=== PATIENT | female | born 1935 | race Caucasian/White ===

== ENCOUNTER → 2016-10-31 | Outpatient (CLI) | payer MEDICARE, OTHER ==
[2016-10-31 10:19] LABS: Blood Urea Nitrogen 10 mg/dL (7-17); Non-African American GFR(MDRD) 53 (>60 ml/min/1.73 sqM)
--- NOTE | 2016-10-31 11:52 | CT ---
EXAMINATION TYPE: CT chest wo/w con DATE OF EXAM: 10/31/2016 COMPARISON: 08/01/2015 and 09/11/2013 HISTORY: 80-year-old female Patient has no complaints at time of study. Follow up study for known keshia ng nodule. History of breast cancer and radiation treatment. TECHNIQUE: Contiguous axial scanning of the chest after the administration of 80 mL of Visipaque 320. Coronal/sagittal reconstructions performed. CT DLP: 1114mGycm. Automatic exposure control utilized for a dose reduction. FINDINGS: Heart is upper limits of normal in size without pericardial effusion. Coronary vessel calcifications are present in the remarkable for coronary artery disease. Aorta is normal caliber with bovine configuration to the aortic arch and mild atherosclerotic calcifi cations. Patient is status post right mastectomy. Similar scarring within the right axilla. No thoracic lympha denopathy by CT size criteria. Evaluation of the lungs shows mild to moderate emphysema and stable band of scarring with a minimal a djacent groundglass extending along the anterior aspect of the right lung 9 mm groundglass nodule posterior right base axial image 40 is new. Some reticulations could represen t atelectasis or interstitial scarring at the posterior lung bases. No consolidation or pleural effus ion. Tiny hiatal hernia. There are 5 new hypovascular liver lesions measuring up to 2.2 cm. Tiny subcentimeter cortical cyst p osterior left kidney is unchanged. Moderate stool burden. Bones: Endplate spondylosis mid to lower thoracic spine there is a new inferior endplate compression fracture of T5 possibly subacute injury given mild paravertebral soft tissue thickening. There is ove rall 40-50% anterior height loss. No retropulsion into the spinal canal. New heterogeneity of the T1 vertebral body, referred to sagittal image 52. IMPRESSION: 1. 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 2. A 9 mm groundglass nodule at the posterior right base is new. This could represent a small infecti ous/inflammatory focus. Early metastatic disease not excluded. 3. However, other findings are concerning for metastatic disease with 5 new hypovascular liver lesion s measuring up to 2.2 cm 4. New heterogeneity of the T1 vertebral body. Early osseous metastatic disease not excluded. 5. T5 vertebral compression collapse is new from 08/01/2015 and is suspected to represent a subacute in jury.
== END | disposition home or self-care (01) ==
LOC: RADCTMAIN 09:40
PROVIDERS: ATTEND Family Medicine
DX: R91.1 Solitary pulmonary nodule (principal); J43.9 Emphysema, unspecified
CPT/HCPCS: 82565; 84520; 71270; 36415; Q9967

== ENCOUNTER → 2016-12-06 | Outpatient (CLI) | payer MEDICARE, OTHER ==
--- NOTE | 2016-12-06 10:26 | US ---
EXAMINATION TYPE: US liver DATE OF EXAM: 12/06/2016 COMPARISON: CT October 31, 2016 and ultrasound 02/13/2013 CLINICAL HISTORY: C22.9 Neoplasm of liver. Liver lesions seen on recent CT, cholecystectomy, constipa tion EXAM MEASUREMENTS: Liver Length: 13.1 cm Gallbladder Wall: Surgically absent CBD: 0.7 cm Right Kidney: 10.3 x 4.1 x 3.9cm Pancreas: Obscured by bowel gas Liver: multiple complex lesions noted, largest = 2.6 x 2.2 x 2.7cm Gallbladder: Surgically absent Evidence for sonographic Costello's sign: no CBD: wnl Right Kidney: no evidence of hydronephrosis or mass IMPRESSION: 1. Multiple hepatic lesions are concerning for metastatic disease.
== END ==
LOC: RADUSWWP 09:33
PROVIDERS: ATTEND Internal Medicine Sleep Medicine
DX: C22.9 Malignant neoplasm of liver, not specified as primary or secondary (principal)
CPT/HCPCS: 76705

== ENCOUNTER 2016-12-21 08:40 | Day surgery (SDC) | payer MEDICARE, OTHER ==
[2016-12-21] MEDS ORDERED: HYDROmorphone 1 MG/ML 1 ML SYRINGE IVP PRN (08:45)
[2016-12-21 09:12] VITALS: BP 152/65; PULSE 68; RESP 20; TEMP 97.8
[2016-12-21 09:16] LABS: Mean Platelet Volume 7.5
[2016-12-21 09:45] LABS: INR 1.1 (<1.2); Prothrombin Time 10.8 sec (9.0-12.0)
--- NOTE | 2016-12-24 12:45 | US ---
Discontinued liver biopsy HISTORY: Liver masses Following discussion with the patient of risks and benefits of procedure, patient has elected to defe r liver biopsy this time.
== END 2016-12-21 10:55 | disposition home or self-care (01) ==
LOC: RADPROMAIN 08:40
PROVIDERS: ATTEND Internal Medicine Sleep Medicine
DX: K76.89 Other specified diseases of liver (principal); Z53.8 Procedure and treatment not carried out for other reasons
CPT/HCPCS: 36415; 76705; 85049; 85610

== ENCOUNTER → 2016-12-22 | Outpatient (CLI) | payer MEDICARE, OTHER ==
--- NOTE | 2016-12-23 21:00 | PE ---
Nuclear medicine PET/CT HISTORY: Solitary pulmonary nodule Patient received 12.8 mCi F-18 FDG intravenously. Delayed whole-body scanning was performed. Correlation to patient's CT 10/31/2016, ultrasound liver 12/06/2016. Neck and chest: There is a right pleural effusion. No evident adenopathy. Coronary artery calcificati ons are present. Hiatal hernia is present. Areas of scarring suspected within the right upper lobe. R etropectoral node is suspected on the right, associated hypermetabolic uptake, SUV is 2.8. Right doyle r nodes thought to be present, hypermetabolic uptake noted, SUV 4.8. Patient is status post right mas tectomy. Abdomen pelvis: Multiple foci of hypermetabolic uptake noted within the liver compatible with patient 's previous exams, SUV 5.8-7.5, lesion is present within the anterior right lobe towards the dome, po sterior right lobe, caudate lobe, left lobe. Osseous structures: Multiple foci are present which are normal. T1 vertebral body shows sclerotic tyrone earance, there is associated hypermetabolic uptake, SUV 5.3. Sclerotic focus at T6 vertebral body courtney ws hypermetabolic uptake, SUV 3.8. Suspect L5 pedicle on the right is abnormal with hypermetabolic up take 3.6. Sacral lesion also present, SUV 3.8. Anterior sixth rib on the left shows hypermetabolic up take, SUV 2.6. IMPRESSION: Metastatic disease as described.
== END | disposition home or self-care (01) ==
LOC: RADPETMAIN 11:29
PROVIDERS: ATTEND Internal Medicine Sleep Medicine
DX: C79.9 Secondary malignant neoplasm of unspecified site (principal); R91.1 Solitary pulmonary nodule
CPT/HCPCS: 78815; A9552

== ENCOUNTER → 2017-01-08 | Day surgery (SDC) | payer MEDICARE, OTHER ==
[2017-01-08 13:24] VITALS: PULSE 71; RESP 16; TEMP 98.6
--- NOTE | 2017-01-08 14:34 | P.PCN ---
Date of Procedure: 01/08/17 Preoperative Diagnosis: malignant right pleural effusion, lung nodule, liver nodule Postoperative Diagnosis: as above Procedure(s) Performed: right thoracentesis Anesthesia: local Surgeon: Bernard Lewis Estimated Blood Loss (ml): 10 Condition: stable Disposition: same day Indications for Procedure: as above Operative Findings: as below Description of Procedure: u/s utilized for max depth, 1 % lidocaine used at 8 th ICS, right catheter in needle placed needle removed catheter left 200 cc of dark orange pleural fluid aspirated, tolerated well
--- NOTE | 2017-01-08 14:41 | XR ---
EXAMINATION TYPE: XR chest 1V portable DATE OF EXAM: 01/08/2017 COMPARISON: Prior chest x-ray 04/06/2015 HISTORY: Status post thoracentesis TECHNIQUE: Single frontal view of the chest is obtained. FINDINGS: There is no evident pneumothorax. Cardiomediastinal silhouette, pulmonary vascularity and doyle not significantly changed. Small residual right pleural effusion suspected with associated atele ctasis. IMPRESSION: No evident complication status post thoracentesis.
[2017-01-08 14:49] VITALS: BP 168/74
[2017-01-08 15:17] LABS: Total Protein 7.5 g/dL (6.3-8.2)
[2017-01-08 15:44] LABS: RBC, Body Fluid 2730 /uL
[2017-01-08 16:01] LABS: Body Fluid Comment Moderate Mesothelial
[2017-01-08 20:25] LABS: Glucose, BF Source Pleural Fluid; LDH, Body Fluid Source Pleural Fluid; T. Protein, Body Fluid Source Pleural Fluid; Total Protein, Body Fluid 3700 mg/dL
== END ==
LOC: PROCWHC3 12:51
PROVIDERS: ATTEND Internal Medicine Sleep Medicine
DX: C50.919 Malignant neoplasm of unspecified site of unspecified female breast (principal); C78.2 Secondary malignant neoplasm of pleura; K76.89 Other specified diseases of liver
CPT/HCPCS: 88108; 88305; 89050; 83615 ×2; 84155; 88342; 88341; 87070; 87205; 87116; 87102; 87206; 82945; 84157; 71010; 36415; 32554; J2001

== ENCOUNTER → 2017-02-04 | Outpatient (CLI) | payer MEDICARE, OTHER ==
--- NOTE | 2017-02-04 14:18 | XR ---
Limited left elbow HISTORY: Pain, breast cancer 2 views of the left elbow No comparisons Small ossific density noted just lateral to the distal humerus. No evident lytic or blastic lesion. N o joint effusion. Alignment and bone mineralization are normal. IMPRESSION: There may be an old avulsion injury, correlate for calcific tendinitis, elbow MRI may be of benefit.
== END | disposition home or self-care (01) ==
LOC: RADXRMAIN 12:04
PROVIDERS: ATTEND Radiology Radiation Oncology
DX: M79.622 Pain in left upper arm (principal); C50.919 Malignant neoplasm of unspecified site of unspecified female breast; C79.51 Secondary malignant neoplasm of bone; Z88.1 Allergy status to other antibiotic agents; Z88.7 Allergy status to serum and vaccine

== ENCOUNTER 2017-03-29 15:44 | Emergency (ER) | payer MEDICARE, OTHER ==
[2017-03-29 16:03] VITALS: RESP 18; TEMP 98.4
[2017-03-29] MEDS ORDERED: RX INFO: IV CONTRAST WAS GIVEN 1 EACH MISC MISCELLANE PRN (16:56)
--- NOTE | 2017-03-29 17:20 | ED ---
General Adult HPI - General Chief complaint: Eye Problems Stated complaint: Double vision Time Seen by Provider: 03/29/17 16:28 Source: patient, RN notes reviewed Mode of arrival: wheelchair Limitations: no limitations - History of Present Illness Initial comments: Patient 81-year-old female who presents emergency room today with chief complaint of diplopia times one month. Patient does admit that it is not all time but seems to come and go. Patient does state that seems to be worse when she looks to the right. States she began to notice when she saw people come to visit her only symptoms are the same spot. She states that she has also had when she is looking straight ahead at times. States currently not having any symptoms at this time. States that she did mention this earlier to a nurse and was advised complete emergency room for further evaluation. Patient does admit that she's currently being treated by Dr Hyatt for breast cancer with metastasis to the liver, back and ribs. Patient denies any other complaints or any new symptoms. Patient denies any recent fever, chills, shortness of breath, chest pain, back pain, abdominal pain, nausea or vomiting, headaches, or any other complaints. - Related Data Home Medications Medication Instructions Recorded Confirmed Atenolol [Tenormin] 25 mg PO DAILY 11/22/14 03/29/17 Levothyroxine Sodium [Synthroid] 50 mcg PO DAILY 11/22/14 03/29/17 PARoxetine HCL [Paxil] 40 mg PO DAILY 11/22/14 03/29/17 amLODIPine BESYLATE [Norvasc] 10 mg PO HS 11/22/14 03/29/17 traZODone HCL [Desyrel] 150 tab PO HS 11/22/14 03/29/17 Aspirin [Adult Low Dose Aspirin EC] 81 mg PO DAILY 12/17/16 03/29/17 Fluticasone/Salmeterol [Advair 1 inhalation PO BID 12/17/16 03/29/17 250-50 Diskus] Folic Acid 1 mg PO DAILY 12/17/16 03/29/17 Gabapentin [Neurontin] 100 mg PO HS 12/17/16 03/29/17 azaTHIOprine [Imuran] 75 mg PO DAILY 12/17/16 03/29/17 HYDROcodone/APAP 5-325MG [[place] 1 tab PO DAILY PRN 03/29/17 03/29/17 5-325] Morphine Sulfate ER [Ms Contin] 15 mg PO HS 03/29/17 03/29/17 Allergies Allergy/AdvReac Type Severity Reaction Status Date / Time bacitracin Allergy BLISTERS, Verified 03/29/17 16:58 [From Neosporin REDNESS ([id number])] bacitracin zinc Allergy BLISTERS, Verified 03/29/17 16:58 [From Neosporin REDNESS ([id number])] neomycin sulfate Allergy BLISTERS, Verified 03/29/17 16:58 [From Neosporin REDNESS ([id number])] pneumococcal vaccine Allergy ARM EDEMA Verified 03/29/17 16:58 AND REDNESS polymyxin B Allergy BLISTERS, Verified 03/29/17 16:58 [From Neosporin REDNESS ([id number])] alprazolam [From Xanax] AdvReac CHOKING Verified 03/29/17 16:58 COUGH Review of Systems ROS Statement: Those systems with pertinent positive or pertinent negative responses have been documented in the HPI. ROS Other: All systems not noted in ROS Statement are negative. Past Medical History Past Medical History: Cancer, COPD, CVA/TIA, Eye Disorder, Fibromyalgia, GERD/ Reflux, Hearing Disorder / Deafness, Hypertension, Liver Disease, Osteoarthritis (OA), Skin Disorder, Thyroid Disorder Additional Past Medical History / Comment(s): MACULAR DEG. HX MULT TIA'S. HX RT BREAST CA 03/2011, AUTO-IMMUNE HEPATITIS. MULT GROWTHS ON SKIN D/T IMURAN. GOUT. OSTEOPOROSIS. HAS PARTIAL TEAR IN RT ROTATOR CUFF. C/O NAUSEA, HEARTBURN, BLOATING FOR SEV YEARS. History of Any Multi-Drug Resistant Organisms: None Reported Past Surgical History: Bowel Resection, Breast Surgery, Cholecystectomy, Hernia Repair Additional Past Surgical History / Comment(s): RT MASTECTOMY. HIATAL HERNIA REPAIR. R side thoracentesis on 01-08-17 for pleural effusion Past Anesthesia/Blood Transfusion Reactions: Previous Problems w/ Anesthesia Additional Past Anesthesia/Blood Transfusion Reaction / Comment(s): reacts Heavy to it - pt's daughter Past Psychological History: Anxiety Smoking Status: Former smoker Past Alcohol Use History: None Reported Past Drug Use History: None Reported - Past Family History Mother Family Medical History: Cancer General Exam - General Exam Comments Initial Comments: General: The patient is awake and alert, in no distress, and does not appear acutely ill. Eye: Pupils are equal, round and reactive to light, extra-ocular movements are intact. No nystagmus. There is normal conjunctiva bilaterally. No signs of icterus. Ears, nose, mouth and throat: There are moist mucous membranes and no oral lesions. Neck: The neck is supple, there is no tenderness or JVD. Cardiovascular: There is a regular rate and rhythm. No murmur, rub or gallop is appreciated. Respiratory: Lungs are clear to auscultation, respirations are non-labored, breath sounds are equal. No wheezes, stridor, rales, or rhonchi. Musculoskeletal: Normal ROM, no tenderness. Strength 5/5. Sensation intact. Pulses equal bilaterally 2+. Neurological: A&O x 3. CN II-XII intact, There are no obvious motor or sensory deficits. Coordination appears grossly intact. Speech is normal. Normal finger to nose testing. Normal rapid alternating movements. Strength 5/5 bilaterally both upper and lower extremities. Skin: Skin is warm and dry and no rashes or lesions are noted. Psychiatric: Cooperative, appropriate mood & affect, normal judgment. Limitations: no limitations Course Vital Signs 03/29/17 16:01 Temperature 98.4 F Pulse Rate 86 Respiratory 18 Rate Blood Pressure 147/68 O2 Sat by Pulse 98 Oximetry Medical Decision Making - Medical Decision Making CT of the head without contrast was performed as IV was unable to be obtained. Patient did have 2 attempts by nursing staff and has refused any further attempts for IV. Was discussed that this would not be as sensitive of a scan without contrast. CT without shows no acute abnormalities. Does admit to symptoms of diplopia off-and-on over the last month. States all other new changes. Were advised to discuss options of possible MRI. Results were discussed with attending physician Dr. Nj. She'll be discharged home advised follow-up oncologist family doctor next 2 days. Disposition Clinical Impression: Diplopia Disposition: HOME SELF-CARE Condition: Stable Instructions: Diplopia (ED) Additional Instructions: Please follow-up with oncologist/family doctor in the next 2 days. Please return to emergency room if the symptoms increase or worsen or for any other concerns. Referrals: Zackary Guzman MD [Primary Care Provider] - 1-2 days Time of Disposition: 18:46
--- NOTE | 2017-03-29 18:23 | CT ---
EXAMINATION TYPE: CT brain wo con DATE OF EXAM: 03/29/2017 COMPARISON: 04/06/2015 HISTORY: Patient complains of double vision. CT DLP: 798 mGycm Automated exposure control for dose reduction was used. FINDINGS: There is no acute intracranial hemorrhage or midline shift identified. There is diffuse v entricular and sulcal prominence consistent with diffuse age-related cerebral atrophy. There conflue nt areas of low-attenuation in the periventricular white matter consistent with chronic small vessel ischemic change. The globes are intact and the visualized sinuses are clear. 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 Atherosclerosis is seen of the intracranial vasculature. IMPRESSION: No acute intracranial hemorrhage or midline shift. There is diffuse age-related cerebra l atrophy and chronic small vessel ischemic change noted. Findings are similar to the prior of 2015.
[2017-03-29 19:00] VITALS: BP 128/74; PULSE 80
== END 2017-03-29 18:59 | disposition home or self-care (01) ==
LOC: EC 15:44
DX: H53.2 Diplopia (principal); C50.919 Malignant neoplasm of unspecified site of unspecified female breast; C78.7 Secondary malignant neoplasm of liver and intrahepatic bile duct; C79.51 Secondary malignant neoplasm of bone; C79.89 Secondary malignant neoplasm of other specified sites; I10 Essential (primary) hypertension; J44.9 Chronic obstructive pulmonary disease, unspecified; M19.90 Unspecified osteoarthritis, unspecified site; M79.7 Fibromyalgia; E07.9 Disorder of thyroid, unspecified; F41.9 Anxiety disorder, unspecified; Z87.891 Personal history of nicotine dependence; Z79.51 Long term (current) use of inhaled steroids; Z79.82 Long term (current) use of aspirin; Z79.899 Other long term (current) drug therapy; Z88.1 Allergy status to other antibiotic agents; Z88.7 Allergy status to serum and vaccine; Z88.8 Allergy status to other drugs, medicaments and biological substances; Z85.3 Personal history of malignant neoplasm of breast; Z90.11 Acquired absence of right breast and nipple
CPT/HCPCS: 70450; 80053; 99283

== ENCOUNTER → 2017-04-22 | Outpatient (CLI) | payer MEDICARE, OTHER ==
[2017-04-22 15:05] LABS: Blood Urea Nitrogen 9 mg/dL (7-17)
--- NOTE | 2017-04-22 15:49 | CT ---
EXAMINATION TYPE: CT angio chest DATE OF EXAM: 04/22/2017 COMPARISON: Prior CT chest 10/31/2016 HISTORY: SOB x1 month. CT DLP: 257.7 mGycm Automated exposure control for dose reduction was used. CONTRAST: CTA scan of the thorax is performed with IV Contrast, patient injected with 100ml mL of Omnipaque 350 , pulmonary embolism protocol. MIP images are created and reviewed. 3D reconstructed images are cre ated on an independent workstation and reviewed. FINDINGS: LUNGS: The lungs are remarkable for emphysematous changes. There are sizable pleural effusions bilate rally with associated atelectasis. Bandlike area of scarring in the right upper lobe is again seen. N o endobronchial lesion.. AORTA: No additional significant abnormality is seen. MEDIASTINUM: There is satisfactory enhancement of the pulmonary artery and its branches, there is no CT evidence for pulmonary embolism. There are no greater than 1 cm hilar or mediastinal lymph nodes. No pericardial effusion is seen. OTHER: Multiple low attenuation foci are scattered within the liver compatible with metastasis. Old nonfused posterior right eighth rib fracture is again noted. Thoracic compression fracture is again s een. There are coronary artery calcifications. IMPRESSION: BILATERAL PLEURAL EFFUSIONS ARE ENLARGED AND DEVELOPED IN THE INTERVAL. METASTATIC DISEASE. No eviden t pulmonary embolism.
== END | disposition home or self-care (01) ==
LOC: RADCTMAIN 14:33
PROVIDERS: ATTEND Internal Medicine Hematology & Oncology
DX: C50.919 Malignant neoplasm of unspecified site of unspecified female breast (principal); J90 Pleural effusion, not elsewhere classified; C78.7 Secondary malignant neoplasm of liver and intrahepatic bile duct
CPT/HCPCS: 82565; 84520; 71275; 36415; Q9967

== ENCOUNTER 2017-04-30 08:59 | Day surgery (SDC) | payer MEDICARE, OTHER ==
[2017-04-30 09:16] VITALS: RESP 20; TEMP 97.5
[2017-04-30 09:48] LABS: INR 1.1 (<1.2); Mean Platelet Volume 7.1; Platelet Count 267 k/uL (150-450); Prothrombin Time 10.9 sec (9.0-12.0)
[2017-04-30 10:42] VITALS: BP 116/67; PULSE 73
--- NOTE | 2017-04-30 10:57 | XR ---
EXAMINATION TYPE: XR chest 1V DATE OF EXAM: 04/30/2017 COMPARISON: Chest x-ray 01/31/2017 HISTORY: Pleural effusion status post left thoracentesis TECHNIQUE: Single frontal view of the chest is obtained. FINDINGS: No evident pneumothorax. Blunting of the left costophrenic angle compatible with residual effusion. Right-sided pleural effusion and associated atelectasis are noted. Heart size is obscured b ut thought to be stable. IMPRESSION: No evident complication status post thoracentesis.
--- NOTE | 2017-04-30 14:03 | US ---
EXAMINATION TYPE: US thoracentesis DATE OF EXAM: 04/30/2017 COMPARISON: NONE HISTORY: Pleural effusion. FINDINGS: Maximal barrier technique was utilized. The skin overlying a suitable pocket of fluid was localized and the overlying skin prepped and draped. Lidocaine was used for local anesthesia. Ultras ound was used with sterile technique. A 5 [place] catheter over guide needle was advanced into the pl eural fluid collection using ultrasound guidance and the catheter was advanced, needle removed. Appr oximately 1.3 liter(s) of serous fluid was removed. Catheter was withdrawn and hemostasis achieved. There is no immediate complication. The patient discharged in stable condition without complication . IMPRESSION: STATUS POST ULTRASOUND GUIDED THORACENTESIS, POST PROCEDURE CHEST X-RAY PENDING. THIS NV OCEDURE WAS PERFORMED BY THE UNDERSIGNED.
== END 2017-04-30 11:00 | disposition home or self-care (01) ==
LOC: RADPROMAIN 08:59
PROVIDERS: ATTEND Internal Medicine Hematology & Oncology
DX: J90 Pleural effusion, not elsewhere classified (principal); C50.919 Malignant neoplasm of unspecified site of unspecified female breast
CPT/HCPCS: 32555; 36415; 71045; 85049; 85610